=== PATIENT | female | born 1955 ===

== ENCOUNTER → 2020-06-26 | Outpatient (CLI) | payer SELFPAY ==
[~2020-06-26] MED LIST: COVID-19 VACCINE (PFIZER)/PF 30 MCG/0.3 ML VIAL IM ONE; EPINEPHRINE INJ/PF 1 MG/1 ML AMPULE IM PRN
--- OUTSIDE RECORDS SUMMARY | 2020-06-29 10:33 | XMS REPORT ---
:1955 Author Organization Formerly [facility] Address [facility] [address] [place] [address] Care Team Providers Name Role Phone Zach Guaman MD Unavailable Sage Vences L.P.N. Unavailable Unavailable Nayely Guzman M.A. Unavailable Unavailable Allergies, Adverse Reactions, Alerts Allergy Allergy Status Severity Reaction(s) Onset Inactive Treating C omments Name Type Date Date Clinician Sulfa Sulfa Active Rash Drugs Drugs Medications Ordered Filled Start Stop Current Ordering Indication Dosage Frequency Signature Comments Components Medication Medication Date Date Medication? Clinician (SIG) Name Name Vitamin D Yes 1capsul QD Vitamin D 1000 UNIT 06-26 e 1000 UNIT Oral 09:13: Oral Capsule - 48 Capsule - Historical Historical Medication Medication 1 capsule daily Active Estradiol-N 2014-06 2018- No Elisabeth 1Tablet QD Estradiol- orethindron 06-09 Sage Norethindr e Acet 00:00: 00:00 one Acet 1-0.5 MG 00 :00 1-0.5 MG Oral Tablet Oral Tablet 1 Tablet daily for 28 days Quantity: 28 Refills: 12 Ordered :26-Jun-19 18 Elisabeth Cazares Started 09-Apr-2015 Ended 8Inactive LOTRISONE, 2014-06- No Zach Lopez 1Cream LOTRISONE , 1-0.05% 06-09 Deniz OSBORNE 1-0.05% (External 00:00: 00:00 (External Cream) 00 :00 Cream) 1 (one) Cream apply bid to itching skin prn for 7 days Quantity: 1 Refills: 0 Ordered : 5 Zach Guaman MD Started 09-Apr-2015 Ended 5Inactive ACTIVELLA, 2015- No Jyothi 1Tablet ACTIVELLA, 1-0.5MG 10-07 immel 1-0.5MG (Oral 00:00: 00:00 INTAKE COORDINATOR (Oral Tablet) 00 :00 Tablet) 1 (one) Tablet q day for 30 days Quantity: 30 Refills: 6 Ordered : 4 Jyothi Beltran LPN Started 07-Oct-2013 Ended 09-Apr-2015 Inactive ANUSOL-HC, 2013- No Zach Lopez 1Cream ANUSOL-HC , 2.5% 10-07 Deniz OSBORNE 2.5% (Rectal 00:00: 00:00 (Rectal Cream) 00 :00 Cream) 1 Cream apply q hs prn rectal itching for 30 days Quantity: 1 Refills: 0 Ordered : 14 Zach Guaman MD Started 07-Oct-2013 Ended 4Inactive DRISDOL, 2014- No Jyothi 1Capsul DRISDOL, [id number] 11-06 Drkalpesh e [id number] (Oral 00:00: 00:00 INTAKE COORDINATOR (Oral Capsule) 00 :00 Capsule) 1 (one) Capsule q week for 30 days Quantity: 4 Refills: 6 Ordered : 12 Jyothi Beltran LPN Started 2 Ended 09-Apr-2015 Inactive ESTRADIOL, 2013- No Andres 1Tablet QD ESTRADIO L, 1MG (Oral 07-07- Graf 1MG (Oral Tablet) 00:00: 00:00 Tablet) 1 00 :00 Tablet daily for 30 days Quantity: 30 Refills: 3 Ordered : 4 GrafAndres Started 07-Jul-2011 Ended 07-Oct-2013 Discontinu ed MEDROXYPROG 2013- No Andres 1Tablet MEDROXY PRO ESTERONE 07-07- Graf GESTERONE ACETATE, 00:00: 00:00 ACETATE, 2.5MG (Oral 00 :00 2.5MG Tablet) (Oral Tablet) 1 Tablet q day for 30 days Quantity: 30 Refills: 3 Ordered : 4 GrafCandicerijustine Started 07-Jul-2011 Ended 07-Oct-2013 Discontinu ed ORTHO-NOVUM 2008-06 2010- No Nargis 1Tablet QD ORTHO-NO VU (28), 06-05- Mono Wynne 1-35MG-MCG 00:00: 00:00 RMA (28), (Oral 00 :00 1-35MG-MCG Tablet) (Oral Tablet) 1 (one) Tablet daily for 28 days Quantity: 1 Refills: 5 Ordered : 010 Mono Nargis RMA Started 05-Apr-2009 Ended 10Inactive KIKI 28, 2008-06 No Alix 1Tablet KIKI 28, 3-0.03MG 0-14 Ru 3-0.03MG (Oral 00:00: L.P.N. (Oral Tablet) 00 Tablet) 1 (one) Tablet q day for 28 days Quantity: 1 Refills: 5 Ordered : 9 Alix Venecs L.P.N. 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) CALCULUS OF CALCULUS OF Problem Active Deniz KIDNEY KIDNEY Zach Lopez (592.0) CANDIDAL CANDIDAL Problem Active Sage VULVITIS VULVITIS Elisabeth DEFICIENCY, DEFICIENCY, Problem Active Sage, VITAMIN D VITAMIN D Elisabeth NOS (268.9) NOS DYSPLASIA DYSPLASIA Problem Active Sage, OF CERVIX, OF CERVIX, Elisabeth UNSPECIFIED UNSPECIFIED (622.10) ELEVATED ELEVATED Problem Active Sage FASTING FASTING Elisabeth BLOOD SUGAR BLOOD SUGAR ENCOUNTER ENCOUNTER Problem Active GABBY Cazares SCREENING SCREENING FOR HUMAN FOR HUMAN PAPILLOMAVI PAPILLOMAVI NOAH (HPV) NOAH (HPV) (Z11.51) HUMAN HUMAN Problem Active Sage PAPILLOMAVI PAPILLOMAVI Elisabeth NOAH (079.4) NOAH HYPERTONICI HYPERTONICI Problem Active Deniz, TY OF TY OF Zach Lopez BLADDER BLADDER (596.51) OTHER AND OTHER AND Problem Active Sage, UNSPECIFIED UNSPECIFIED Elisabeth OVARIAN OVARIAN CYST CYST (620.2) OTHER OTHER Problem Active Sage, SPECIFIED SPECIFIED Elisabeth MENOPAUSAL MENOPAUSAL AND AND PERIMENOPAU PERIMENOPAU ANIL ANIL DISORDERS DISORDERS OTHER OTHER Problem Active Sage, SYMPTOMS SYMPTOMS Elisabeth INVOLVING INVOLVING ABDOMEN AND ABDOMEN AND PELVIS, PELVIS, ABDOMINAL ABDOMINAL PAIN, RIGHT PAIN, RIGHT LOWER LOWER QUADRANT QUADRANT (789.03) PHARYNGITIS PHARYNGITIS Problem Active Sage, , ACUTE , ACUTE Elisabeth (462.) (462.) POLYP OF POLYP OF Problem Active Sage CORPUS CORPUS Elisabeth UTERI UTERI (621.0) PROPHYLACTI PROPHYLACTI Problem Active Sage C HORMONE C HORMONE Elisabeth REPLACEMENT REPLACEMENT THERAPY THERAPY (V07.4) RECTAL RECTAL Problem Active Sage, ITCHING ITCHING Elisabeth (698.0) SCREENING SCREENING Problem Active Sage, MAMMOGRAM MAMMOGRAM Elisabeth NEC NEC (V76.12) SCREENING SCREENING Problem Active Sage FOR HUMAN FOR HUMAN Elisabeth PAPILLOMAVI PAPILLOMAVI NOAH (HPV) NOAH (HPV) (V73.81) SCREENING SCREENING Problem Inactiv Sage, MAMMOGRAM MAMMOGRAM e Elisabeth NEC NEC (V76.12) SEBACEOUS SEBACEOUS Problem Inactiv Sage, CYST CYST e Elisabeth (706.2) STATE, STATE, Problem Active Deniz, SYMPTOMATIC SYMPTOMATIC Zach L MENOPAUSE/F MENOPAUSE/F EM EM CLIMACTERIC CLIMACTERIC (627.2) SYMPTOM, SYMPTOM, Problem Active Sage, HEADACHE HEADACHE Elisabeth (784.0) SYMPTOM, SYMPTOM, Problem Active Sage PAIN, PAIN, Elisabeth ABDOMINAL, ABDOMINAL, GENERALIZED GENERALIZED (789.07) SYMPTOMS SYMPTOMS Problem Active Sage, INVOLVING INVOLVING Elisabeth URINARY URINARY SYSTEM, SYSTEM, MIXED MIXED INCONTINENC INCONTINENC E, URGE AND E, URGE AND STRESS STRESS (MALE) (MALE) (FEMALE) (FEMALE) (788.33) SYMPTOMS SYMPTOMS Problem Inactiv Sage, INVOLVING INVOLVING e Elisabeth URINARY URINARY SYSTEM, SYSTEM, URINARY URINARY FREQUENCY FREQUENCY (788.41) UNSPECIFIED UNSPECIFIED Problem Active Sage, DISORDER OF DISORDER OF Elisabeth LIPOID LIPOID METABOLISM METABOLISM (272.9) UTI UTI Problem Inactiv Sage, SYMPTOMS SYMPTOMS e Elisabeth EXCESSIVE EXCESSIVE Problem Inactiv Deniz, OR FREQUENT OR FREQUENT e Zach L MENSTRUATIO MENSTRUATIO N (626.2) N SURVEILLANC SURVEILLANC Problem Inactiv Dalton Vences OF E OF e Alix CONTRACEPTI CONTRACEPTI VE PILL VE PILL (V25.41) Disease No Condition Inactiv Impairment e Information Available COLICKY RLQ COLICKY RLQ Problem Active Guzman, ABDOMINAL ABDOMINAL Remedios R. PAIN PAIN DIARRHEA DIARRHEA Problem Active Elisabeth Cazares NOCTURIA NOCTURIA Problem Active Zach Guaman SYMPTOMS SYMPTOMS Problem Active Sage, INVOLVING INVOLVING Elisabeth URINARY URINARY SYSTEM, SYSTEM, URINARY URINARY FREQUENCY FREQUENCY (788.41) URGENCY OF URGENCY OF Problem Active Deniz URINATION URINATION Zach Lopez SEBACEOUS SEBACEOUS Problem Active Sage, CYST CYST Elisabeth (706.2) UTI UTI Problem Active Sage, SYMPTOMS SYMPTOMS Elisabeth Procedures Procedure Date / Time Performed Performing Clinician Margarita acosta Appendectomy Elisabeth Cazares Bone Density Study Elisabeth Cazares Colonoscopy Elisabeth Cazares CT Scan Of Abdomen Elisabeth Cazares Lumpectomy Elisabeth Cazaers Mammogram, Screening Elisabeth Cazares Pap Smear Elisabeth Cazares Ultrasound, Transvaginal Elisabeth Cazares Results Test Description Test Time Test Comments Text Results Atomic Results Result Comments URINALYSIS, AUTOMATED, W/O MICRO ([id number]) 2018-05-09 00:00:00 Test Item Value Reference Range Comments UA - COMMENTS (test code = UA - COMMENTS) . cath specimen/rt UA - LEUKOCYTE ESTERASE (test code = 5799-2) Negative UA - NITRITE (test code = 5802-4) Negative UA - URO (test code = UA - URO) 0.2 mg/dL UA - PROTEIN (test code = 59226-5) Negative UA - PH (test code = 5803-2) 6.0 UA - BLOOD (test code = 5794-3) Trace UA - SPECIFIC GRAVITY (test code = 2965-2) 1.025 UA - KETONES (test code = 2514-8) Negative UA - BILIRUBIN (test code = 5770-3) Negative UA - GLUCOSE (test code = 5792-7) Negative UA - COLOR (test code = 5778-6) Yellow UA - APPEARANCE (test code = 5767-9) Clear URINALYSIS, AUTOMATED, W/O MICRO ([id number])2018-05-09 00:00:00 Test Item Value Reference Range Comments UA - COMMENTS (test code = UA - COMMENTS) . rt UA - LEUKOCYTE ESTERASE (test code = 5799-2) Negative UA - NITRITE (test code = 5802-4) Negative UA - URO (test code = UA - URO) 0.2 mg/dL UA - PROTEIN (test code = 44271-7) Negative UA - PH (test code = 5803-2) 6.5 UA - BLOOD (test code = 5794-3) Negative UA - SPECIFIC GRAVITY (test code = 2965-2) 1.025 UA - KETONES (test code = 2514-8) Negative UA - BILIRUBIN (test code = 5770-3) Negative UA - GLUCOSE (test code = 5792-7) Negative UA - COLOR (test code = 5778-6) Yellow UA - APPEARANCE (test code = 5767-9) Clear Urine Culture, [id number] 00:00:00 Test Item Value Reference Range Comments Urine Culture, Routine (test code = 630-4) Final report PERFORMED BY: [facility] [id number] Clinical Information: SRC:UR UrineURINALYSIS, AUTOMATED, W/O MICRO ([id number])2017-06-26 00:00:00 Test Item Value Reference Range Comments UA - COMMENTS (test code = UA - COMMENTS) . rt UA - LEUKOCYTE ESTERASE (test code = 5799-2) Negative UA - NITRITE (test code = 5802-4) Negative UA - URO (test code = UA - URO) 0.2 mg/dL UA - PROTEIN (test code = 75711-6) Negative UA - PH (test code = 5803-2) 5.5 UA - BLOOD (test code = 5794-3) Negative UA - SPECIFIC GRAVITY (test code = 2965-2) 1.020 UA - KETONES (test code = 2514-8) Negative UA - BILIRUBIN (test code = 5770-3) Negative UA - GLUCOSE (test code = 5792-7) Negative UA - COLOR (test code = 5778-6) Yellow UA - APPEARANCE (test code = 5767-9) Clear URINALYSIS, AUTOMATED, W/O MICRO ([id number])2015-04-09 00:00:00 Test Item Value Reference Range Comments UA - COMMENTS (test code = UA - COMMENTS) . sp UA - LEUKOCYTE ESTERASE (test code = 5799-2) Negative UA - NITRITE (test code = 5802-4) Negative UA - URO (test code = UA - URO) 0.2 mg/dL UA - PROTEIN (test code = 54646-3) Negative UA - PH (test code = 5803-2) 5.5 UA - BLOOD (test code = 5794-3) Trace UA - SPECIFIC GRAVITY (test code = 2965-2) >1.030 UA - KETONES (test code = 2514-8) Negative UA - BILIRUBIN (test code = 5770-3) + UA - GLUCOSE (test code = 5792-7) Negative UA - COLOR (test code = 5778-6) dark yellow UA - APPEARANCE (test code = 5767-9) Clear Comp. Metabolic Panel (14)2015-03-19 00:00:00 Test Item Value Reference Range Comments ALT (SGPT) (test code = 1742-6) 19 [iU]/L 0-32 AST (SGOT) (test code = 1920-8) 29 [iU]/L 0-40 Alkaline Phosphatase, S (test code = 6768-6) 71 [iU]/L 39- 117 A/G Ratio (test code = 1759-0) 2.1 1.1-2.5 Bilirubin, Total (test code = 1975-2) 0.6 mg/dL 0.0-1.2 Globulin, Total (test code = 91450-1) 2.3 g/dL 1.5-4.5 Albumin, Serum (test code = 1751-7) 4.9 g/dL 3.5-5.5 Protein, Total, Serum (test code = 2885-2) 7.2 g/dL 6.0-8 .5 Calcium, Serum (test code = 27872-5) 10.0 mg/dL 8.7-10.2 Carbon Dioxide, Total (test code = 8-9) 23 mmol/L 18-29 Chloride, Serum (test code = 2075-0) 101 mmol/L 97-108 Potassium, Serum (test code = 2823-3) 4.4 mmol/L 3.5-5.2 Sodium, Serum (test code = 2951-2) 141 mmol/L 134-144 BUN/Creatinine Ratio (test code = 3097-3) 14 9-23 eGFR If Africn Am (test code = 11534-3) 92 mL/min/1.73 >59 eGFR If NonAfricn Am (test code = 10171-7) 80 mL/min/1.73 >59 Creatinine, Serum (test code = 2160-0) 0.81 mg/dL 0.57-1.00 BUN (test code = 3094-0) 11 mg/dL 6-24 Glucose, Serum (test code = 2345-7) 104 mg/dL 65-99 PATIENT WAS FASTING PERFORMED BY: [facility] [address] [id number] 00:00:00 Test Item Value Reference Range Comments LDL Cholesterol Calc (test 148 mg/dL 0-99 Eff ective March 29, 2015 code = 79340-4) the reference in terval for LDL Cholesterol Calc will be changing to: 0 - 19 years 0 - 109 >19 years 0 - 99 VLDL Cholesterol Zia (test 16 mg/dL 5-40 code = 30382-2) HDL Cholesterol (test code = 77 mg/dL >39 Acc ording to ATP-III 2085-02) Guidelines, HDL- C >59 mg/dL is considered a negative risk factor for CHD. Cholesterol, Total (test code 241 mg/dL 100-199 Effective March 29, 2015 = 3-3) the reference in terval for Cholesterol, Tot al will be changing to: 0 - 19 years 100 - 169 >19 years 100 - 199 Triglycerides (test code = 79 mg/dL 0-149 Eff ective March 29, 2015 2571-8) the reference in terval for Triglycerides wi ll be changing to: 0 - 9 years 0 - 74 10 - 19 years 0 - 89 >19 years 0 - 149 PATIENT WAS FASTING PERFORMED BY: [facility] [place] [address] [facility] [id number] 00:00:00 Test Item Value Reference Range Comments TSH (test code = 05651-9) 2.610 uIU/mL 0.450-4.500 PATIENT WAS FASTING PERFORMED BY: [facility] [place] 058487 [facility] [id number], [id number] 00:00:00 Test Item Value Reference Range Comments Vitamin D, 25-Hydroxy 35.4 ng/mL 30.0-100.0 Vitamin D deficiency has been (test code = 87608-7) defined by the [place] of [employer] and an Endocrine Society practice guideline as a level of serum 2 5-OH vitamin D less than 20 ng/ mL (1,2). The Endocrine Societ y went on to further define v itamin D insufficiency as a level between 21 and 29 ng/mL (2). 1. IOM ([place] of [place] dicnigel). 2010. Dietary referenc e intakes for calcium and D. W jose rafael [place]: The National Sylvia demies Press. 2. Tai MF, Erich vo [place], Elida TINOCO, et al. Evaluation, josefina tment, and prevention of vi tamin D deficiency: an E ndocrine Society clinical practic e guideline. JCEM. 2010; 96(7):1911-30. PATIENT WAS FASTING PERFORMED BY: [facility] [address] [id number] HEALTH PANEL (ECWC-CBC,CMP,TSH) ([id number])2015-03-19 00:00:00 Test Item Value Reference Range Comments CBC COMMENTS (test code = 35462-7) . C sht MPV (test code = 776-5) 8.9 fL 7.8-11.0 BLOOD COUNT, PLATELET, AUTOMATED (test code = 320 x10^3uL 15 0-400 777-3) RDW (RED CELL DISTRIBUTION WIDTH) (test code = 11.2 % 1 1.6-13.7 788-0) MCHC (MEAN CORPUSCULAR HEMOGLOBIN CONCENTRATI 34.1 g/dL 33 .0-37.0 (test code = 786-4) MCH (MEAN CORPUSCULAR HEMOGLOBIN) (test code = 29.0 pg 2 7.0-37.0 785-6) MCV (MEAN CORPUSCULAR VOLUME) (test code = 85.0 fL 80.0- 99.9 787-2) HCT (HEMATOCRIT) (test code = 4544-3) 41.5 % 35.0-60.0 HGB (HEMOGLOBIN) (test code = 718-7) 14.2 g/dL 11.0-18.0 RBC (test code = 789-8) 4.88 x10^6uL 4.00-6.00 GRANULOCYTE % (test code = 770-8) 4.2 x10^3uL 1.4-6.5 MONOCYTES (test code = 5905-5) 0.5 x10^3uL 0.1-0.6 LYMPHOCYTE % (test code = 736-9) 34.7 % 20.5-51.1 GRANULOCYTE # (test code = 751-8) 60.1 % 42.2-75.2 MONOCYTE # (test code = 742-7) 5.2 % 1.7-9.3 WBC (test code = 6690-2) 7.1 x10^3uL 4.5-10.5 URINALYSIS, AUTOMATED, W/O MICRO ([id number])2013-10-07 00:00:00 Test Item Value Reference Range Comments UA - URINE SEDIMENT (test code = 35773-7) 0 UA - LEUKOCYTE ESTERASE (test code = 5799-2) Trace UA - NITRITE (test code = 5802-4) Negative UA - PROTEIN (test code = 51684-8) Trace UA - BILIRUBIN (test code = 5770-3) Negative UA - BLOOD (test code = 5794-3) Trace UA - PH (test code = 5803-2) 5.0 4.6-8.0 UA - SPECIFIC GRAVITY (test code = 2965-2) 1.025 1.001 -1.035 UA - KETONES (test code = 2514-8) Negative UA - GLUCOSE (test code = 5792-7) Negative UA - COLOR (test code = 5778-6) Yellow UA - APPEARANCE (test code = 5767-9) Clear Comp. Metabolic Panel (14)2013-09-29 00:00:00 Test Item Value Reference Range Comments ALT (SGPT) (test code = 1742-6) 11 [iU]/L 0-32 AST (SGOT) (test code = 1920-8) 19 [iU]/L 0-40 Alkaline Phosphatase, S (test code = 6768-6) 78 [iU]/L 39- 117 Bilirubin, Total (test code = 1975-2) 0.4 mg/dL 0.0-1.2 A/G Ratio (test code = 1759-0) 2.3 1.1-2.5 Globulin, Total (test code = 15495-5) 2.0 g/dL 1.5-4.5 Albumin, Serum (test code = 1751-7) 4.6 g/dL 3.5-5.5 Protein, Total, Serum (test code = 2885-2) 6.6 g/dL 6.0-8 .5 Calcium, Serum (test code = 68327-7) 9.8 mg/dL 8.7-10.2 Carbon Dioxide, Total (test code = 2027-9) 28 mmol/L 19-28 Chloride, Serum (test code = 2075-0) 104 mmol/L 97-108 Potassium, Serum (test code = 2823-3) 4.8 mmol/L 3.5-5.2 Sodium, Serum (test code = 2951-2) 144 mmol/L 134-144 BUN/Creatinine Ratio (test code = 3097-3) 16 9-23 eGFR If Africn Am (test code = 60079-2) 112 mL/min/1.73 >59 eGFR If NonAfricn Am (test code = 66187-9) 97 mL/min/1.73 >59 Creatinine, Serum (test code = 2160-0) 0.68 mg/dL 0.57-1.00 BUN (test code = 3094-0) 11 mg/dL 6-24 Glucose, Serum (test code = 2345-7) 94 mg/dL 65-99 PATIENT WAS FASTING PERFORMED BY: [facility] [address] [id number] 00:00:00 Test Item Value Reference Range Comments LDL Cholesterol Calc (test code 117 mg/dL 0-99 = 91588-8) HDL Cholesterol (test code = 74 mg/dL >39 Acc ording to ATP-III 5-9) Guidelines, HDL- C >59 mg/dL is considered a negative risk factor for CHD. VLDL Cholesterol Zia (test code 17 mg/dL 5-40 = 82797-9) Triglycerides (test code = 85 mg/dL 0-149 2571-8) Cholesterol, Total (test code = 208 mg/dL 897-571 5572-3) PATIENT WAS FASTING PERFORMED BY: [facility] [address] [id number] 00:00:00 Test Item Value Reference Range Comments TSH (test code = 69587-1) 2.450 uIU/mL 0.450-4.500 PATIENT WAS FASTING PERFORMED BY: [facility] [id number], [id number] 00:00:00 Test Item Value Reference Range Comments Vitamin D, 25-Hydroxy 36.5 ng/mL 30.0-100.0 Vitamin D deficiency has been (test code = 34566-5) defined by the [place] of [employer] and an Endocrine Society practice guideline as a level of serum 2 5-OH vitamin D less than 20 ng/ mL (1,2). The Endocrine Societ y went on to further define v itamin D insufficiency as a level between 21 and 29 ng/mL (2). 1. IOM ([place] of [place] dicine). 2010. Dietary referenc e intakes for calcium and D. [facility] [place]: The National Sylvia demies Press. 2. Tai MF, Erich LOCKHART, Elida TINOCO, et al. Evaluation, josefina tment, and prevention of vi tamin D deficiency: an E ndocrine Society clinical practic e guideline. JCEM. 2010; 96(7):1911-30. PATIENT WAS FASTING PERFORMED BY: [facility] [employer] [address] [id number] HEALTH PANEL (ECWC-CBC,CMP,TSH) ([id number])2013-09-29 00:00:00 Test Item Value Reference Range Comments CBC COMMENTS (test code = 05213-5) . C ag MPV (test code = 776-5) 8.3 fL 7.8-11.0 BLOOD COUNT, PLATELET, AUTOMATED (test code = 317 x10^3uL 15 0-400 777-3) RDW (RED CELL DISTRIBUTION WIDTH) (test code = 11.0 % 1 1.6-13.7 788-0) MCHC (MEAN CORPUSCULAR HEMOGLOBIN CONCENTRATI 35.0 g/dL 33 .0-37.0 (test code = 786-4) MCH (MEAN CORPUSCULAR HEMOGLOBIN) (test code = 29.2 pg 2 7.0-37.0 785-6) MCV (MEAN CORPUSCULAR VOLUME) (test code = 83.6 fL 80.0- 99.9 787-2) HCT (HEMATOCRIT) (test code = 4544-3) 40.3 % 35.0-60.0 HGB (HEMOGLOBIN) (test code = 718-7) 14.1 g/dL 11.0-18.0 RBC (test code = 789-8) 4.82 x10^6uL 4.00-6.00 GRANULOCYTE % (test code = 770-8) 3.5 x10^3uL 1.4-6.5 MONOCYTES (test code = 5905-5) 0.5 x10^3uL 0.1-0.6 LYMPHOCYTE % (test code = 736-9) 36.3 % 20.5-51.1 GRANULOCYTE # (test code = 751-8) 57.0 % 42.2-75.2 MONOCYTE # (test code = 742-7) 6.7 % 1.7-9.3 WBC (test code = 6690-2) 6.2 x10^3uL 4.5-10.5 Comp. Metabolic Panel (14)2011-10-31 00:00:00 Test Item Value Reference Range Comments ALT (SGPT) (test code = 1742-6) 11 [iU]/L 0-40 Alkaline Phosphatase, S (test code = 6768-6) 72 [iU]/L 25- 150 AST (SGOT) (test code = 1920-8) 15 [iU]/L 0-40 Bilirubin, Total (test code = 1975-2) 0.5 mg/dL 0.0-1.2 A/G Ratio (test code = 1759-0) 1.8 1.1-2.5 Globulin, Total (test code = 06043-6) 2.4 g/dL 1.5-4.5 Albumin, Serum (test code = 1751-7) 4.2 g/dL 3.5-5.5 Protein, Total, Serum (test code = 2885-2) 6.6 g/dL 6.0-8 .5 Calcium, Serum (test code = 80087-3) 9.1 mg/dL 8.7-10.2 Carbon Dioxide, Total (test code = 2027-9) 24 mmol/L 20-32 Chloride, Serum (test code = 2075-0) 102 mmol/L 97-108 Potassium, Serum (test code = 2823-3) 4.5 mmol/L 3.5-5.2 Sodium, Serum (test code = 2951-2) 140 mmol/L 134-144 BUN/Creatinine Ratio (test code = 3097-3) 21 9-23 eGFR If Africn Am (test code = 37632-3) 113 mL/min/1.73 >59 Creatinine, Serum (test code = 2160-0) 0.68 mg/dL 0.57-1.00 eGFR If NonAfricn Am (test code = 54994-6) 98 mL/min/1.73 >59 BUN (test code = 3094-0) 14 mg/dL 6-24 Glucose, Serum (test code = 2345-7) 95 mg/dL 65-99 PATIENT WAS FASTING PERFORMED BY: [facility] [address] [id number] 00:00:00 Test Item Value Reference Range Comments LDL Cholesterol Calc (test code 135 mg/dL 0-99 = 01991-8) HDL Cholesterol (test code = 73 mg/dL >39 Acc ording to ATP-III 2085-9) Guidelines, HDL- C >59 mg/dL is considered a negative risk factor for CHD. VLDL Cholesterol Zia (test code 25 mg/dL 5-40 = 46851-7) Cholesterol, Total (test code = 233 mg/dL 305-378 8706-3) Triglycerides (test code = 127 mg/dL 0-149 2571-8) PATIENT WAS FASTING PERFORMED BY: [facility] [address] [id number] 00:00:00 Test Item Value Reference Range Comments TSH (test code = 53583-8) 2.710 uIU/mL 0.450-4.500 PATIENT WAS FASTING PERFORMED BY: [facility] [address] [id number], [id number] 00:00:00 Test Item Value Reference Range Comments Vitamin D, 25-Hydroxy 35.3 ng/mL 30.0-100.0 Vitamin D deficiency has been (test code = 03737-4) defined by the [place] [employer] and an Endocrine Society practice guideline as a level of serum 2 5-OH vitamin D less than 20 ng/ mL (1,2). The Endocrine Societ y went on to further define v itamin D insufficiency as a level between 21 and 29 ng/mL (2). 1. IOM ([place]). 2010. Dietary referenc e intakes for calcium and D. W jose rafael [place]: [facility] [employer]. 2. Tai MF, Erich vo [place], Elida TINOCO, et al. Evaluation, josefina tment, and prevention of vi tamin D deficiency: an E ndocrine Society clinical practic e guideline. JCEM. 2010; 96(7):1911-30. PATIENT WAS FASTING PERFORMED BY: [facility] [address] [id number] HEALTH PANEL (ECWC-CBC,CMP,TSH) ([id number])2011-10-31 00:00:00 Test Item Value Reference Range Comments CBC COMMENTS (test code = 02853-0) . C MEF MPV (test code = 776-5) 7.6 fL 7.8-11.0 BLOOD COUNT, PLATELET, AUTOMATED (test code = 324 x10^3uL 15 0-400 777-3) RDW (RED CELL DISTRIBUTION WIDTH) (test code = 10.1 % 1 1.6-13.7 788-0) MCHC (MEAN CORPUSCULAR HEMOGLOBIN CONCENTRATI 34.3 g/dL 33 .0-37.0 (test code = 786-4) MCH (MEAN CORPUSCULAR HEMOGLOBIN) (test code = 29.5 pg 2 7.0-37.0 785-6) MCV (MEAN CORPUSCULAR VOLUME) (test code = 85.9 fL 80.0- 99.9 787-2) HCT (HEMATOCRIT) (test code = 4544-3) 41.2 % 35.0-60.0 HGB (HEMOGLOBIN) (test code = 718-7) 14.1 g/dL 11.0-18.0 RBC (test code = 789-8) 4.79 x10^6uL 4.00-6.00 GRANULOCYTE % (test code = 770-8) 5.9 x10^3uL 1.4-6.5 MONOCYTES (test code = 5905-5) 0.6 x10^3uL 0.1-0.6 LYMPHOCYTE % (test code = 736-9) 23.5 % 20.5-51.1 GRANULOCYTE # (test code = 751-8) 70.7 % 42.2-75.2 MONOCYTE # (test code = 742-7) 5.8 % 1.7-9.3 WBC (test code = 6690-2) 8.4 x10^3uL 4.5-10.5 URINALYSIS, AUTOMATED, W/O MICRO ([id number])2011-04-20 00:00:00 Test Item Value Reference Range Comments UA - LEUKOCYTE ESTERASE (test code = 5799-2) Negative UA - NITRITE (test code = 5802-4) Negative UA - PROTEIN (test code = 06082-6) Negative UA - BILIRUBIN (test code = 5770-3) Negative UA - BLOOD (test code = 5794-3) Trace UA - PH (test code = 5803-2) 6.0 4.6-8.0 UA - SPECIFIC GRAVITY (test code = 2965-2) 1.025 1.001 -1.035 UA - KETONES (test code = 2514-8) Negative UA - GLUCOSE (test code = 5792-7) Negative UA - COLOR (test code = 5778-6) Yellow UA - APPEARANCE (test code = 5767-9) Clear Comp. Metabolic Panel (14)2011-04-14 00:00:00 Test Item Value Reference Range Comments ALT (SGPT) (test code = 13 [iU]/L 0-40 1742-6) AST (SGOT) (test code = 17 [iU]/L 0-40 1920-8) Alkaline Phosphatase, S 69 [iU]/L 25-150 (test code = 6768-6) Bilirubin, Total (test 0.5 mg/dL 0.0-1.2 code = 1975-2) A/G Ratio (test code = 1.9 1.1-2.5 1759-0) Globulin, Total (test code 2.4 g/dL 1.5-4.5 = 40361-5) Albumin, Serum (test code 4.5 g/dL 3.5-5.5 = 1751-7) Protein, Total, Serum 6.9 g/dL 6.0-8.5 (test code = 2885-2) Calcium, Serum (test code 9.2 mg/dL 8.7-10.2 = 49293-1) Carbon Dioxide, Total 23 mmol/L 20-32 (test code = 8-9) Chloride, Serum (test code 104 mmol/L 97-108 = 2075-0) Potassium, Serum (test 4.4 mmol/L 3.5-5.2 code = 2823-3) Sodium, Serum (test code = 140 mmol/L 204-508 0823-2) BUN/Creatinine Ratio (test 16 - code = 3097-3) eGFR If Africn Am (test 116 mL/min/1.73 >59 Note: A persistent eGFR <60 code = eGFR If Africn Am) mL/min /1.73 m2 (3 months or more) may indica te chronic kidney disease. An eGFR >59 mL/min/1.73 m2 w ith an elevated urine p rotein also may indicate chr onic kidney disease. Calcula marisel using CKD-EPI formula. eGFR If NonAfricn Am (test 101 mL/min/1.73 >59 code = 30421-4) Creatinine, Serum (test 0.64 mg/dL 0.57-1.00 code = 2160-0) BUN (test code = 3094-0) 10 mg/dL 6-24 Glucose, Serum (test code 88 mg/dL 65-99 = 2345-7) PATIENT WAS FASTING PERFORMED BY: [facility] [id number] 00:00:00 Test Item Value Reference Range Comments LDL Cholesterol Calc (test code 150 mg/dL 0-99 = 70180-9) VLDL Cholesterol Zia (test code 15 mg/dL 5-40 = 67385-4) HDL Cholesterol (test code = 69 mg/dL >39 Acc ording to ATP-III 5-9) Guidelines, HDL- C >59 mg/dL is considered a negative risk factor for CHD. Triglycerides (test code = 77 mg/dL 0-149 2571-8) Cholesterol, Total (test code = 234 mg/dL 937-851 8758-3) PATIENT WAS FASTING PERFORMED BY: [facility] [address] [id number] 00:00:00 Test Item Value Reference Range Comments TSH (test code = 70358-1) 2.090 uIU/mL 0.450-4.500 PATIENT WAS FASTING PERFORMED BY: [facility] [address] [id number] D, [id number] 00:00:00 Test Item Value Reference Range Comments Vitamin D, 25-Hydroxy (test 38.7 ng/mL 32.0-100.0 E ffective April 24, 2011 code = 1989-3) Vitamin D, 25-Hy droxy reference interv als will be changing to 30-1 00. . Recent studies consider the lower limit of 32.0 ng /mL to be a threshold for [facility]. Ryder FRAUSTO. Mervin Nut r. 2005 Jul;135(2):317-2 2. PATIENT WAS FASTING PERFORMED BY: [facility] [address] [id number] HEALTH PANEL (ECWC-CBC,CMP,TSH) ([id number])2011-04-14 00:00:00 Test Item Value Reference Range Comments CBC COMMENTS (test code = 22286-8) . C AG MPV (test code = 776-5) 8.7 fL 7.8-11.0 BLOOD COUNT, PLATELET, AUTOMATED (test code = 308 x10^3uL 15 0-400 777-3) RDW (RED CELL DISTRIBUTION WIDTH) (test code = 12.0 % 1 1.6-13.7 788-0) MCHC (MEAN CORPUSCULAR HEMOGLOBIN CONCENTRATI 33.2 g/dL 33 .0-37.0 (test code = 786-4) MCH (MEAN CORPUSCULAR HEMOGLOBIN) (test code = 28.7 pg 2 7.0-37.0 785-6) MCV (MEAN CORPUSCULAR VOLUME) (test code = 86.5 fL 80.0- 99.9 787-2) HCT (HEMATOCRIT) (test code = 4544-3) 42.5 % 35.0-60.0 HGB (HEMOGLOBIN) (test code = 718-7) 14.1 g/dL 11.0-18.0 RBC (test code = 789-8) 4.91 x10^6uL 4.00-6.00 GRANULOCYTE % (test code = 770-8) 4.7 x10^3uL 1.4-6.5 MONOCYTES (test code = 5905-5) 0.5 x10^3uL 0.1-0.6 LYMPHOCYTE % (test code = 736-9) 28.3 % 20.5-51.1 GRANULOCYTE # (test code = 751-8) 66.1 % 42.2-75.2 MONOCYTE # (test code = 742-7) 5.6 % 1.7-9.3 WBC (test code = 6690-2) 7.2 x10^3uL 4.5-10.5 Vitamin D, [id number] 00:00:00 Test Item Value Reference Range Comments Vitamin D, 25-Hydroxy (test 43.4 ng/mL 32.0-100.0 Rece nt studies consider the code = 1988-) lower limit of 3 2.0 ng/mL to be a threshold f or optimal health. Ryder Butler W. J Nutr. 2005 Jul;135(2): 317-22. PATIENT NOT FASTING PERFORMED BY: [facility] [address] [id number] - rapid strep ([id number])2010-11-24 00:00:00 Test Item Value Reference Range Comments STREPTOCOCCUS GRP A, INFCTS ANTIGN (test code = NEGATIVE NEGATIVE AG 6556-5) Lipid [id number] 00:00:00 Test Item Value Reference Range Comments LDL Cholesterol Calc (test code 144 mg/dL 0-99 = 88341-8) HDL Cholesterol (test code = 71 mg/dL >39 Acc ording to ATP-III 2084-9) Guidelines, HDL- C >59 mg/dL is considered a negative risk factor for CHD. Triglycerides (test code = 77 mg/dL 0-149 2571-8) VLDL Cholesterol Zia (test code 15 mg/dL 5-40 = 89591-0) Cholesterol, Total (test code = 230 mg/dL 367-966 0002-3) PATIENT WAS FASTING PERFORMED BY: [facility] [place] [address] [facility] [id number], [id number] 00:00:00 Test Item Value Reference Range Comments Cholesterol, Total (test code = 2092-3) 239 mg/dL 100-199 PATIENT NOT FASTING PERFORMED BY: [facility] [place] [address] [facility] [id number]. Metabolic Panel (14)2010-04-14 00:00:00 Test Item Value Reference Range Comments A/G Ratio (test code = 1759-0) 1.7 1.1-2.5 Albumin, Serum (test code = 4.2 g/dL 3.5-5.5 1751-7) Alkaline Phosphatase, S (test 72 [iU]/L 25-150 code = 6768-6) ALT (SGPT) (test code = 1742-6) 9 [iU]/L 0-40 AST (SGOT) (test code = 1920-8) 14 [iU]/L 0-40 Bilirubin, Total (test code = 0.4 mg/dL 0.0-1.2 1974-2) Globulin, Total (test code = 2.5 g/dL 1.5-4.5 83873-3) Protein, Total, Serum (test 6.7 g/dL 6.0-8.5 code = 2885-2) Calcium, Serum (test code = 9.1 mg/dL 8.7-10.2 66630-3) Carbon Dioxide, Total (test 25 mmol/L 20-32 code = 8-9) Chloride, Serum (test code = 106 mmol/L 97-108 5-0) Potassium, Serum (test code = 4.1 mmol/L 3.5-5.2 2823-3) BUN (test code = 3094-0) 14 mg/dL 5-26 BUN/Creatinine Ratio (test code 01-28 = 3097-3) Creatinine, Serum (test code = 0.69 mg/dL 0.57-1.00 2160-0) eGFR (test code = eGFR) >59 >59 eGFR AfricanAmerican (test code >59 >59 Note: Persistent reduction = eGFR AfricanAmerican) for 3 mo nths or more in an eGFR <60 mL/min/ 1.73 m2 defines CKD. Pat ients with eGFR values >/=6 0 mL/min/1.73 m2 m ay also have CKD if evid ence of persistent prote inuria is present. Additio nal information may be found at [email or web address]. Sodium, Serum (test code = 142 mmol/L 018-208 0449-2) Glucose, Serum (test code = 96 mg/dL 65-99 2345-7) PATIENT NOT FASTING PERFORMED BY: [facility] [employer] [address] [id number] Clinical Information: 3 HR [id number] 00:00:00 Test Item Value Reference Range Comments TSH (test code = 82515-8) 2.730 uIU/mL 0.450-4.500 PATIENT NOT FASTING PERFORMED BY: [facility] [address] [id number] D, [id number] 00:00:00 Test Item Value Reference Range Comments Vitamin D, 25-Hydroxy (test 24.9 ng/mL 32.0-100.0 Rece nt studies consider the code = 1988-08) lower limit of 3 2.0 ng/mL to be a threshold f or optimal health. Ryder Butler W. J Nutr. 2005 Jul;135(2): 317-22. PATIENT NOT FASTING PERFORMED BY: [facility] [address] [id number] HEALTH PANEL (ECWC-CBC,CMP,TSH) ([id number])2010-04-14 00:00:00 Test Item Value Reference Range Comments CBC COMMENTS (test code = 13960-4) . C MEF MPV (test code = 776-5) 7.7 fL 7.8-11.0 BLOOD COUNT, PLATELET, AUTOMATED (test code = 373 x10^3uL 15 0-400 777-3) RDW (RED CELL DISTRIBUTION WIDTH) (test code = 16.4 % 1 1.6-13.7 788-0) MCHC (MEAN CORPUSCULAR HEMOGLOBIN CONCENTRATI 34.4 g/dL 33 .0-37.0 (test code = 786-4) MCH (MEAN CORPUSCULAR HEMOGLOBIN) (test code = 29.4 pg 2 7.0-37.0 785-6) MCV (MEAN CORPUSCULAR VOLUME) (test code = 85.4 fL 80.0- 99.9 787-2) HCT (HEMATOCRIT) (test code = 4544-3) 38.3 % 35.0-60.0 HGB (HEMOGLOBIN) (test code = 718-7) 13.2 g/dL 11.0-18.0 RBC (test code = 789-8) 4.48 x10^6uL 4.00-6.00 GRANULOCYTE % (test code = 770-8) 5.3 x10^3uL 1.4-6.5 MONOCYTES (test code = 5905-5) 0.6 x10^3uL 0.1-0.6 LYMPHOCYTE % (test code = 736-9) 29.2 % 20.5-51.1 GRANULOCYTE # (test code = 751-8) 64.6 % 42.2-75.2 MONOCYTE # (test code = 742-7) 6.2 % 1.7-9.3 WBC (test code = 6690-2) 8.3 x10^3uL 4.5-10.5 URINALYSIS, AUTOMATED, W/O MICRO ([id number])2010-04-14 00:00:00 Test Item Value Reference Range Comments UA - COMMENTS (test code = UA - COMMENTS) . crs UA - URINE SEDIMENT (test code = 64842-1) . UA - LEUKOCYTE ESTERASE (test code = 5799-2) neg UA - REDUCING SUBSTANCE (test code = 95951-6) . UA - NITRITE (test code = 5802-4) neg UA - PROTEIN (test code = 42455-8) trace UA - BILIRUBIN (test code = 5770-3) neg UA - BLOOD (test code = 5794-3) neg UA - PH (test code = 5803-2) 7.5 4.6-8.0 UA - SPECIFIC GRAVITY (test code = 2965-2) 1.010 1.001 -1.035 UA - KETONES (test code = 2514-8) trace UA - GLUCOSE (test code = 5792-7) neg UA - COLOR (test code = 5778-6) yellow UA - APPEARANCE (test code = 5767-9) cloudy [id number] 00:00:00 Test Item Value Reference Range Comments Estradiol (test code = <5.1 Adult Fem sophia: Follicular phase 2243-4) 12.5 - 166.0 Ovu lation phase 85.8 - 498.0 Luteal p hase 43.8 - 211.0 Postmenopausal < 6.0 - 54.[address] imester 215.0 - >4300.0 Girls (1 -10 years) 6.0 - 27.0 Ramon ECLIA methodology PATIENT NOT FASTING PERFORMED BY: [facility] [id number], [id number] 00:00:00 Test Item Value Reference Range Comments FSH (test code = 56.1 m[iU]/mL Follicular phas e 3.5 - 12.5 61021-1) Ovulation phase 4.7 - 21.5 Luteal phase 1.7 - 7.7 Postmenopausal 2 5.8 - 134.8 PATIENT NOT FASTING PERFORMED BY: [facility] [address] [id number], AUTOMATED, W/O MICRO ([id number]) 2009-03-17 00:00:00 Test Item Value Reference Range Comments UA - KETONES (test code = 2514-8) NEG UA - GLUCOSE (test code = 5792-7) NEG UA - SPECIFIC GRAVITY (test code = 2965-2) 1.025 1.001 -1.035 UA - PH (test code = 5803-2) 6.0 4.6-8.0 UA - BLOOD (test code = 5794-3) TRACE UA - BILIRUBIN (test code = 5770-3) NEG UA - PROTEIN (test code = 89057-3) NEG UA - NITRITE (test code = 5802-4) NEG UA - REDUCING SUBSTANCE (test code = 10350-7) NEG UA - URINE SEDIMENT (test code = 73053-6) NEG UA - COLOR (test code = 5778-6) gold UA - APPEARANCE (test code = 5767-9) clear Lipid [id number] 00:00:00 Test Item Value Reference Range Comments Comment (test code = Comment) COMMENT If initial LDL-cholesterol result is >100 m g/dL, assess for risk factors . HDL Cholesterol (test code = 88 mg/dL 40-59 HDL cholesterol values >59 HDL Cholesterol) mg/dL are assoc iated with reduced cardiac risk. LDL Cholesterol Calc (test code 143 mg/dL 0-99 = LDL Cholesterol Calc) VLDL Cholesterol Zia (test code 20 mg/dL 5-40 = VLDL Cholesterol Zia) Cholesterol, Total (test code = 251 mg/dL 100-199 Cholesterol, Total) Triglycerides (test code = 98 mg/dL 0-149 Triglycerides) PATIENT WAS FASTING PERFORMED BY: [facility] [id number], [id number] 00:00:00 Test Item Value Reference Range Comments Cholesterol, Total (test code = Cholesterol, 275 mg/dL 100 -199 Total) PATIENT NOT FASTINGComp. Metabolic Panel (14)2007-09-17 00:00:00 Test Item Value Reference Range Comments A/G Ratio (test code = A/G Ratio) 1.3 1.1-2.5 Albumin, Serum (test code = Albumin, Serum) 4.2 g/dL 3.5- 5.5 Alkaline Phosphatase, S (test code = Alkaline 69 [iU]/L 25 -150 Phosphatase, S) ALT (SGPT) (test code = ALT (SGPT)) 13 [iU]/L 0-40 AST (SGOT) (test code = AST (SGOT)) 15 [iU]/L 0-40 Bilirubin, Total (test code = Bilirubin, Total) 0.5 mg/dL 0.1-1.2 BUN (test code = BUN) 16 mg/dL 5-26 BUN/Creatinine Ratio (test code = BUN/Creatinine 20 8-27 Ratio) Calcium, Serum (test code = Calcium, Serum) 10.1 mg/dL 8.5- 10.6 Carbon Dioxide, Total (test code = Carbon 25 mmol/L 20-32 Dioxide, Total) Chloride, Serum (test code = Chloride, Serum) 98 mmol/L 97 -108 Creatinine, Serum (test code = Creatinine, Serum) 0.8 mg/dL 0.5-1.5 Globulin, Total (test code = Globulin, Total) 3.3 g/dL 1. 5-4.5 Glucose, Serum (test code = Glucose, Serum) 79 mg/dL 65-9 9 Potassium, Serum (test code = Potassium, Serum) 4.5 mmol/L 3.5-5.2 Protein, Total, Serum (test code = Protein, 7.5 g/dL 6.0- 8.5 Total, Serum) Sodium, Serum (test code = Sodium, Serum) 136 mmol/L 135-14 5 PATIENT NOT [id number] 00:00:00 Test Item Value Reference Range Comments TSH (test code = TSH) 2.107 uIU/mL 0.350-5.500 Adult TSH concentrations below 5.5 uIU/mL does not rule out the presence of subc linical hypothyroidism. PATIENT NOT FASTING PERFORMED BY: [facility] [id number] HEALTH PANEL (ECWC-CBC,CMP,TSH) ([id number])2007-09-17 00:00:00 Test Item Value Reference Range Comments BLOOD COUNT, PLATELET, AUTOMATED (test code = 426 x10^3uL 15 0-400 777-3) CBC COMMENTS (test code = 75623-3) . C SHT GRANULOCYTE # (test code = 751-8) 66.7 % 42.2-75.2 GRANULOCYTE % (test code = 770-8) 7.6 x10^3uL 1.4-6.5 HCT (HEMATOCRIT) (test code = 4544-3) 40.1 % 35.0-60.0 HGB (HEMOGLOBIN) (test code = 718-7) 14.2 g/dL 11.0-18.0 LYMPHOCYTES, TOTAL (test code = 736-9) 3.1 x10^3uL 1.2-3.4 MCH (MEAN CORPUSCULAR HEMOGLOBIN) (test code = 29.1 pg 2 7.0-37.0 785-6) MCHC (MEAN CORPUSCULAR HEMOGLOBIN CONCENTRATI 35.5 g/dL 33 .0-37.0 (test code = 786-4) MCV (MEAN CORPUSCULAR VOLUME) (test code = 82.0 fL 80.0- 99.9 787-2) MONOCYTE # (test code = 742-7) 6.2 % 1.7-9.3 MONOCYTES (test code = 5905-5) 0.8 x10^3uL 0.1-0.6 MPV (test code = 776-5) 7.3 fL 7.8-11.0 RBC (test code = 789-8) 4.89 x10^6uL 4.00-6.00 RDW (RED CELL DISTRIBUTION WIDTH) (test code = 14.0 % 1 1.6-13.7 788-0) WBC (test code = 6690-2) 11.5 x10^3uL 4.5-10.5 URINALYSIS, AUTOMATED, W/O MICRO ([id number])2007-09-17 00:00:00 Test Item Value Reference Range Comments UA - APPEARANCE (test code = 5767-9) CLEAR UA - BILIRUBIN (test code = 5770-3) NEG UA - BLOOD (test code = 5794-3) NEG UA - COLOR (test code = 5778-6) YELLOW UA - COMMENTS (test code = UA - COMMENTS) . UA - GLUCOSE (test code = 5792-7) NEG UA - KETONES (test code = 2514-8) NEG UA - LEUKOCYTE ESTERASE (test code = 5799-2) NEG UA - NITRITE (test code = 5802-4) NEG UA - PH (test code = 5803-2) NEG 4.6-8.0 UA - PROTEIN (test code = 77633-3) NEG UA - REDUCING SUBSTANCE (test code = 09973-4) . UA - SPECIFIC GRAVITY (test code = 2965-2) NEG 1.001 -1.035 UA - URINE SEDIMENT (test code = 98115-1) . URINALYSIS, AUTOMATED, W/O MICRO ([id number])2006-05-25 00:00:00 Test Item Value Reference Range Comments UA - BILIRUBIN (test code = 5770-3) NEG UA - BLOOD (test code = 5794-3) NEG UA - COMMENTS (test code = UA - COMMENTS) NEG UA - LEUKOCYTE ESTERASE (test code = 5799-2) NEG UA - NITRITE (test code = 5802-4) NEG UA - PROTEIN (test code = 22174-4) NEG UA - REDUCING SUBSTANCE (test code = 30698-8) NEG UA - URINE SEDIMENT (test code = 55409-9) NEG UA - APPEARANCE (test code = 5767-9) CLEAR UA - COLOR (test code = 5778-6) YELLOW UA - GLUCOSE (test code = 5792-7) NEG UA - KETONES (test code = 2514-8) NEG UA - PH (test code = 5803-2) NEG 4.6-8.0 UA - SPECIFIC GRAVITY (test code = 2965-2) NEG 1.001 -1.035 Assessments Condition Name Status Diagnosis Date Treating Clinici an COLICKY RLQ ABDOMINAL PAIN Active CALCULUS OF KIDNEY (592.0) Active 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 NOCTURIA Active URGENCY OF URINATION Active STATE, SYMPTOMATIC MENOPAUSE/FEM CLIMACTERIC Active (627.2) NO SHOWED 05/30/18 Active UTI SYMPTOMS Active URGENCY OF URINATION Active SYMPTOMS INVOLVING URINARY SYSTEM, URINARY Active FREQUENCY (788.41) DIARRHEA Active SCREENING FOR MALIGNANT NEOPLASMS OF THE Active RECTUM (V76.41) 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 NOCTURIA Active CALCULUS OF KIDNEY (592.0) Active ELEVATED FASTING BLOOD SUGAR Active COLICKY RLQ ABDOMINAL PAIN Active ROUTINE GYNECOLOGICAL EXAMINATION (V72.31) Active ENCOUNTER FOR SCREENING FOR HUMAN Active PAPILLOMAVIRUS (HPV) (Z11.51) 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 SCREENING FOR MALIGNANT NEOPLASMS OF THE Active RECTUM (V76.41) PROPHYLACTIC HORMONE REPLACEMENT THERAPY Active (V07.4) OTHER SPECIFIED MENOPAUSAL AND Active PERIMENOPAUSAL DISORDERS DEFICIENCY, VITAMIN D NOS (268.9) Active ROUTINE GYNECOLOGICAL EXAMINATION (V72.31) Active SCREENING FOR MALIGNANT NEOPLASMS OF THE Active RECTUM (V76.41) PROPHYLACTIC HORMONE REPLACEMENT THERAPY Active (V07.4) SCREENING MAMMOGRAM NEC (V76.12) Active DEFICIENCY, VITAMIN D NOS (268.9) Active 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) CALCULUS OF KIDNEY (592.0) Active 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 BREAST FIBROCYSTIC DISORDER (610.1) Active OTHER SPECIFIED MENOPAUSAL AND Active PERIMENOPAUSAL DISORDERS neg genetic screen Active ELEVATED FASTING BLOOD SUGAR Active CANDIDAL VULVITIS Active 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 SYMPTOMS INVOLVING URINARY SYSTEM, MIXED Active INCONTINENCE, URGE AND STRESS (MALE) (FEMALE) (788.33) CALCULUS OF KIDNEY (592.0) Active 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) DEFICIENCY, VITAMIN D NOS (268.9) Active ROUTINE GYNECOLOGICAL EXAMINATION (V72.31) Active SCREENING FOR MALIGNANT NEOPLASMS OF THE Active RECTUM (V76.41) SCREENING MAMMOGRAM NEC (V76.12) Active DEFICIENCY, VITAMIN D NOS (268.9) Active PROPHYLACTIC HORMONE REPLACEMENT THERAPY Active (V07.4) BREAST FIBROCYSTIC DISORDER (610.1) Active RECTAL ITCHING (698.0) Active DEFICIENCY, VITAMIN D NOS (268.9) Active 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) DEFICIENCY, VITAMIN D NOS (268.9) Active PROPHYLACTIC HORMONE REPLACEMENT THERAPY Active (V07.4) 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) DEFICIENCY, VITAMIN D NOS (268.9) Active PROPHYLACTIC HORMONE REPLACEMENT THERAPY Active (V07.4) STATE, SYMPTOMATIC MENOPAUSE/FEM CLIMACTERIC Active (627.2) ROUTINE GYNECOLOGICAL EXAMINATION (.31) Active SCREENING FOR HUMAN PAPILLOMAVIRUS (HPV) Active (V73.81) PROPHYLACTIC HORMONE REPLACEMENT THERAPY Active (V07.4) DEFICIENCY, VITAMIN D NOS (268.9) Active 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) DEFICIENCY, VITAMIN D NOS (268.9) Active 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) OTHER AND UNSPECIFIED OVARIAN CYST (620.2) Active DEFICIENCY, VITAMIN D NOS (268.9) Active PHARYNGITIS, ACUTE (462.) Active 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) CALCULUS OF KIDNEY (592.0) Active DEFICIENCY, VITAMIN D NOS (268.9) Active STATE, SYMPTOMATIC MENOPAUSE/FEM CLIMACTERIC Active (627.2) PROPHYLACTIC HORMONE REPLACEMENT THERAPY Active (V07.4) PHARYNGITIS, ACUTE (462.) Active URI= cold November Active DEFICIENCY, VITAMIN D NOS (268.9) Active DEFICIENCY, VITAMIN D NOS (268.9) Active 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) STATE, SYMPTOMATIC MENOPAUSE/FEM CLIMACTERIC Active (627.2) DEFICIENCY, VITAMIN D NOS (268.9) Active 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) DEFICIENCY, VITAMIN D NOS (268.9) Active 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) DEFICIENCY, VITAMIN D NOS (268.9) Active ROUTINE GYNECOLOGICAL EXAMINATION (V7.31) Active PROPHYLACTIC HORMONE REPLACEMENT THERAPY Active (V07.4) STATE, SYMPTOMATIC MENOPAUSE/FEM CLIMACTERIC Active (627.2) 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) DYSPLASIA OF CERVIX, 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 CALCULUS OF KIDNEY (592.0) Active 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 Active BLEEDING, POSTMENOPAUSAL (627.1) Active PROPHYLACTIC HORMONE REPLACEMENT THERAPY Active (V07.4) STATE, SYMPTOMATIC MENOPAUSE/FEM CLIMACTERIC Active (627.2) DYSPLASIA OF CERVIX, 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 BLEEDING, POSTMENOPAUSAL (627.1) Active PROPHYLACTIC HORMONE REPLACEMENT THERAPY Active (V07.4) BLEEDING, POSTMENOPAUSAL (627.1) Active OTHER SYMPTOMS INVOLVING ABDOMEN AND PELVIS, Active ABDOMINAL PAIN, RIGHT LOWER QUADRANT (789.03) STATE, SYMPTOMATIC MENOPAUSE/FEM CLIMACTERIC Active (627.2) SYMPTOM, HEADACHE (784.0) Active SYMPTOM, PAIN, ABDOMINAL, GENERALIZED Active (789.07) OTHER SYMPTOMS INVOLVING ABDOMEN AND PELVIS, Active ABDOMINAL PAIN, RIGHT LOWER QUADRANT (789.03) BLEEDING, POSTMENOPAUSAL (627.1) Active STATE, SYMPTOMATIC MENOPAUSE/FEM CLIMACTERIC Active (627.2) SYMPTOM, HEADACHE (784.0) Active STATE, SYMPTOMATIC MENOPAUSE/FEM CLIMACTERIC Active (627.2) SYMPTOM, HEADACHE (784.0) Active SURVEILLANCE OF CONTRACEPTIVE PILL (V25.41) Active SURVEILLANCE OF CONTRACEPTIVE PILL (V25.41) Active ROUTINE GYNECOLOGICAL EXAMINATION (V72.31) Active SURVEILLANCE OF CONTRACEPTIVE PILL (V25.41) Active 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 CALCULUS OF KIDNEY (592.0) Active 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 DYSPLASIA OF CERVIX, 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 SURVEILLANCE OF CONTRACEPTIVE PILL (V25.41) Active 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) SURVEILLANCE OF CONTRACEPTIVE PILL (V25.41) Active ROUTINE GYNECOLOGICAL EXAMINATION (V72.31) Active 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) Unspecified Diagnosis Active ROUTINE GYNECOLOGICAL EXAMINATION (V72.31) Active ROUTINE GYNECOLOGICAL EXAMINATION (V72.31) Active SURVEILLANCE OF CONTRACEPTIVE PILL (V25.41) Active SYMPTOMS INVOLVING URINARY SYSTEM, MIXED Active INCONTINENCE, URGE AND STRESS (MALE) (FEMALE) (788.33) EXCESSIVE OR FREQUENT MENSTRUATION (626.2) Active CALCULUS OF KIDNEY (592.0) Active 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 Active SYMPTOMS INVOLVING URINARY SYSTEM, MIXED Active INCONTINENCE, URGE AND STRESS (MALE) (FEMALE) (788.33) 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 EXCESSIVE OR FREQUENT MENSTRUATION (626.2) Active OTHER AND UNSPECIFIED OVARIAN CYST (620.2) Active CALCULUS OF KIDNEY (592.0) Active DYSPLASIA OF CERVIX, 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.4) Active SYMPTOMS INVOLVING URINARY SYSTEM, MIXED Active INCONTINENCE, URGE AND STRESS (MALE) (FEMALE) (788.33) ROUTINE GYNECOLOGICAL EXAMINATION (V72.31) Active ROUTINE GYNECOLOGICAL EXAMINATION (V72.31) Active OTHER AND UNSPECIFIED OVARIAN CYST (620.2) Active EXCESSIVE OR FREQUENT MENSTRUATION (626.2) Active 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 HUMAN 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, 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 SYMPTOMS INVOLVING URINARY SYSTEM, MIXED Active INCONTINENCE, URGE AND STRESS (MALE) (FEMALE) (788.33) CALCULUS OF KIDNEY (592.0) Active OTHER AND UNSPECIFIED OVARIAN CYST (620.2) Active SURVEILLANCE OF CONTRACEPTIVE PILL (V25.41) Active OTHER AND UNSPECIFIED OVARIAN CYST (620.2) Active SURVEILLANCE OF CONTRACEPTIVE PILL (V25.41) Active DYSPLASIA OF CERVIX, 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 OTHER AND UNSPECIFIED OVARIAN CYST (620.2) Active DYSPLASIA OF CERVIX, 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 SURVEILLANCE OF CONTRACEPTIVE PILL (V25.41) Active EXCESSIVE OR FREQUENT MENSTRUATION (626.2) Active DYSPLASIA OF CERVIX, 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 OTHER AND UNSPECIFIED OVARIAN CYST (620.2) Active POLYP OF CORPUS UTERI (621.0) Active SEBACEOUS CYST (706.2) Active SYMPTOMS INVOLVING URINARY SYSTEM, URINARY Active FREQUENCY (788.41) POLYP OF CORPUS UTERI (621.0) Active SEBACEOUS CYST (706.2) Active 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 EXCESSIVE OR FREQUENT MENSTRUATION (626.2) Active DYSPLASIA OF CERVIX, 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.4) Active OTHER AND UNSPECIFIED OVARIAN CYST (620.2) Active POLYP OF CORPUS UTERI (621.0) Active EXCESSIVE OR FREQUENT MENSTRUATION (626.2) Active SEBACEOUS CYST (706.2) Active POLYP OF CORPUS UTERI (621.0) Active DYSPLASIA OF CERVIX, 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 OTHER SYMPTOMS INVOLVING ABDOMEN AND PELVIS, Active ABDOMINAL PAIN, RIGHT LOWER QUADRANT (789.03) EXCESSIVE OR FREQUENT MENSTRUATION (626.2) Active SEBACEOUS CYST (706.2) Active DYSPLASIA OF CERVIX, 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, 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, 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.4) Active OTHER SYMPTOMS INVOLVING ABDOMEN AND PELVIS, Active ABDOMINAL PAIN, RIGHT LOWER QUADRANT (789.03) SEBACEOUS CYST (706.2) Active Encounters Start End Encounter Admission Attending Care Care Encounter ID Date/Time Date/Time Type Type Clinicians Facility Department 2018-06-18 2018-06-18 Office Visit [place] [id number] 15:26:41 16:49:27 [facility] Women[facility] Women's 2018-05-31 2018-05-31 Annotation/A [place] [id number] 13:14:17 13:14:17 ddendum [facility] Women's 2018-05-09 2018-05-09 Office Visit [place] [id number] 07:27:51 07:27:51 [facility] Women's 2017-06-26 2017-06-26 Office Visit [place] [id number] 07:42:52 07:42:52 [facility] Women's 2015-04-09 2015-04-09 Office Visit [place] [id number] 15:07:11 15:07:11 [facility] Women's 2015-03-19 2015-03-19 Historical [facility] [id number] 11:30:00 11:30:00 Summary [facility] Women's 2013-10-07 2013-10-07 Office Visit [place] [id number] 09:16:22 09:16:22 [facility] Women's 2013-09-29 2013-09-29 [facility] [id number] 08:39:07 08:39:07 Summary [facility] Women's 2011-11-07 2011-11-07 Office Visit [place] [id number] 08:56:43 08:56:43 [facility] Women's 2011-10-31 2011-10-31 Historical [facility] [id number] 08:15:56 08:15:56 Summary [facility] Women's 2011-07-07 2011-07-07 Annotation/A [place] [id number] 16:05:49 16:05:49 ddendum [facility] Women's 2011-04-20 2011-04-20 Office Visit [place] [id number] 09:23:46 09:23:46 [facility] Women's 2011-04-14 2011-04-14 [facility] [id number] 08:33:36 08:33:36 Summary [facility] Women's 2010-12-01 2010-12-01 Office Visit [place] [id number] 13:29:39 13:29:39 [facility] Women's 2010-11-24 2010-11-24 Office Visit [place] [id number] 13:25:34 13:25:34 [facility] Women's 2010-10-28 2010-10-28 [facility] [id number] 08:36:03 08:36:03 [facility] Women's 2010-09-27 2010-09-27 [facility] [id number] 07:58:33 07:58:33 [facility] Women's 2010-05-06 2010-05-06 Office Visit [place] [id number] 14:19:47 14:19:47 [facility] Women's 2010-04-26 2010-04-26 [facility] [id number] 09:19:46 09:19:46 Summary [facility] Women's 2010-04-15 2010-04-15 Annotation/A [place] [id number] 12:32:12 12:32:12 ddendum [facility] Women's 2010-04-15 2010-04-15 Annotation/A [place] [id number] 12:14:42 12:14:42 ddendum [facility] Women's 2010-04-14 2010-04-14 Office Visit [place] [id number] 14:17:16 14:17:16 [facility] Women's 2010-01-21 2010-01-21 Office Visit [place] [id number] 13:34:56 13:34:56 [facility] Women's 2010-01-14 2010-01-14 Annotation/A [place] [id number] 12:25:01 12:25:01 ddendum [facility] Women's 2009-12-31 2009-12-31 Office Visit [place] [id number] 09:08:01 09:08:01 [facility] Women's 2009-12-13 2009-12-13 Office Visit [place] [id number] 13:02:17 13:02:17 [facility] Women's 2009-09-20 2009-09-20 Office Visit [place] [id number] 14:40:17 14:40:17 [facility] Women's 2009-09-13 2009-09-13 Office Visit [place] [id number] 15:10:50 15:10:50 [facility] Women's 2009-04-05 2009-04-05 [facility] [id number] 13:37:54 13:37:54 [facility] Women's 2009-03-17 2009-03-17 Office Visit [place] [id number] 13:41:03 13:41:03 [facility] Women's 2008-06-29 2008-06-29 Office Visit [place] [id number] 13:47:47 13:47:47 [facility] Women's 2008-04-13 2008-04-13 Phone [facility] [id number] 13:44:25 13:44:25 Encounter [facility] Women's 2007-11-07 2007-11-07 Letter [facility] [id number] 14:45:25 14:45:25 [facility] Women's 2007-10-10 2007-10-10 Office Visit [place] [id number] 14:57:04 14:57:04 [facility] Women's 2007-09-30 2007-09-30 Historical [facility] [id number] 12:16:42 12:16:42 Summary [facility] Women's 2007-09-24 2007-09-24 Letter [facility] [id number] 08:18:25 08:18:25 [facility] Women's 2007-09-17 2007-09-17 Office Visit [place] [id number] 14:10:59 14:10:59 [facility] Women's 2007-01-01 2007-01-01 Office Visit [place] [id number] 10:02:21 10:02:21 [facility] Women's 2006-12-31 2006-12-31 Historical [facility] [id number] 16:46:09 16:46:09 Summary [facility] Women's 2006-08-27 2006-08-27 Office Visit [facility] [id number] 13:24:45 13:24:45 [facility] Women's 2006-06-05 2006-06-05 Letter [facility] [id number] 11:41:27 11:41:27 [facility] Women's 2006-05-25 2006-05-25 Office Visit [facility] [id number] 09:22:08 09:22:08 [facility] Women's 2006-05-24 2006-05-24 Historical [facility] [id number] 10:01:00 10:01:00 Summary [facility] Women's 2006-03-19 2006-03-19 Phone [facility] [id number] 13:44:07 13:44:07 Encounter [facility] Women's 2005-11-23 2005-11-23 Office Visit [place] [id number] 14:27:36 14:27:36 [facility] Women's 2005-11-09 2005-11-09 Phone [facility] [id number] 12:27:25 12:27:25 Encounter [facility] Women's 2005-06-13 2005-06-13 Letter [facility] [id number] 09:28:29 09:28:29 [facility] Women's 2005-05-23 2005-05-23 Office Visit [place] [id number] 14:05:54 14:05:54 [facility] Women's 2005-03-10 2005-03-10 Post-Op [facility] [id number] 14:17:29 14:17:29 Visit [facility] Women[facility] Women's 2005-03-02 2005-03-02 Letter [facility] [id number] 13:00:15 13:00:15 [facility] Women's 2005-02-13 2005-02-13 Office Visit [place] [id number] 10:24:54 10:24:54 [facility] Women's 2005-02-10 2005-02-10 Admission [facility] [id number] 11:36:27 11:36:27 Note [facility] Women's 2005-02-07 2005-02-07 Phone [facility] [id number] 17:18:47 17:18:47 Encounter [facility] Women's 2005-01-25 2005-01-25 Annotation/A [place] [id number] 21:19:20 21:19:20 ddendum [facility] Women's 2005-01-19 2005-01-19 Office Visit [place] [id number] 14:02:49 14:02:49 [facility] Women's 2005-01-16 2005-01-16 Annotation/A [place] [id number] 15:38:34 15:38:34 ddendum [facility] Women[facility] Women's 2005-01-10 2005-01-10 Consultation [place] [id number] 10:44:35 10:44:35 [facility] Women's Family History Family Member Diagnosis Comments Start Date Stop Date Unspecified Breast Cancer Cousin. Unspecified Cancer Mother. Unspecified DIABETES MELLITUS, NOS Mother. Son. Sister. Unspecified HEART DISEASE, NOS Father. Unspecified HYPERTENSION Father. Unspecified HYPOTHYROIDISM, NOS Mother. Unspecified Stomach Cancer Maternal Grandmother. Unspecified STROKE, NOS ([phone] Father. Payers Payer Name Policy Type Policy Number Effective Date Expiration D ate [employer] Federal Employee OT Benefit Plan FEP STANDARD OPTION OT FORMULARY Plan of Treatment Planned Activity Planned Date Details Comments Future Scheduled Test [code = ] Future Scheduled Test [code = ] Future Scheduled Test [code = ] Future Scheduled Test [code = ] Future Scheduled Test [code = ] Future Scheduled Test [code = ] Future Scheduled Test [code = ] Future Scheduled Test [code = ] Future Scheduled Test [code = ] Future Scheduled Test [code = ] Future Scheduled Test [code = ] Future Scheduled Test [code = ] Future Scheduled Test [code = ] Future Scheduled Test [code = ] Future Scheduled Test [code = ] Future Scheduled Test [code = ] Future Scheduled Test [code = ] Future Scheduled Test [code = ] Future Scheduled Test [code = ] Future Scheduled Test [code = ] Future Scheduled Test [code = ] Future Scheduled Test [code = ] Future Scheduled Test [code = ] Future Scheduled Test [code = ] Future Scheduled Test [code = ] Future Scheduled Test [code = ] Future Scheduled Test [code = ] Future Scheduled Test [code = ] Social History Social Habit Start Date Stop Date Comments Tobacco Use No Drug Use Non Drinker/No Alcohol Use Primary Control Method Smoking Status Start Date Stop Date Never smoker Vital Signs Vital Name Observation Time Observation Value Comments BP Systolic 2018-06-18 15:29:25 142 mm[Hg] Patient Posi tion: Sitting; Cuff Location: Left A rm; Cuff Size: Stand ronak BP Diastolic 2018-06-18 15:29:25 80 mm[Hg] Patient Posi tion: Sitting; Cuff Location: Left A rm; Cuff Size: Stand ronak Weight 2018-06-18 15:29:25 126.25 [lb_av] Height 2018-06-18 15:29:25 58 [in_us] Body Mass Index Calculated 2018-06-18 15:29:25 26.39 kg/m2 BP Systolic 2018-05-09 08:54:22 138 mm[Hg] Patient Posi tion: Sitting; Cuff Location: Left A rm; Cuff Size: Stand ronak BP Diastolic 2018-05-09 08:54:22 78 mm[Hg] Patient Posi tion: Sitting; Cuff Location: Left A rm; Cuff Size: Stand ronak Weight 2018-05-09 08:54:22 127.25 [lb_av] Height 2018-05-09 08:54:22 58 [in_us] Body Mass Index Calculated 2018-05-09 08:54:22 26.59 kg/m2 BP Systolic 2017-06-26 09:14:39 118 mm[Hg] Patient Posi tion: Sitting; Cuff Location: Left A rm; Cuff Size: Stand ronak BP Diastolic 2017-06-26 09:14:39 78 mm[Hg] Patient Posi tion: Sitting; Cuff Location: Left A rm; Cuff Size: Stand ronak Weight 2017-06-26 09:14:39 118.125 [lb_av] Height 2017-06-26 09:14:39 58 [in_us] Body Mass Index Calculated 2017-06-26 09:14:39 24.69 kg/m2 BP Systolic 2015-04-09 15:08:17 142 mm[Hg] Patient Posi tion: Sitting; Cuff Location: Left A rm; Cuff Size: Stand ronak BP Diastolic 2015-04-09 15:08:17 80 mm[Hg] Patient Posi tion: Sitting; Cuff Location: Left A rm; Cuff Size: Stand ronak Weight 2015-04-09 15:08:17 135.25 [lb_av] Height 2015-04-09 15:08:17 58 [in_us] Body Mass Index Calculated 2015-04-09 15:08:17 28.27 kg/m2 BP Systolic 2013-10-07 09:20:06 138 mm[Hg] BP Diastolic 2013-10-07 09:20:06 72 mm[Hg] Weight 2013-10-07 09:20:06 135 [lb_av] Height 2013-10-07 09:20:06 60 [in_us] Body Mass Index Calculated 2013-10-07 09:20:06 26.37 kg/m2 BP Systolic 2011-11-07 08:57:42 120 mm[Hg] Patient Posi tion: Sitting BP Diastolic 2011-11-07 08:57:42 82 mm[Hg] Patient Posi tion: Sitting Weight 2011-11-07 08:57:42 131 [lb_av] Height 2011-11-07 08:57:42 60 [in_us] Body Mass Index Calculated 2011-11-07 08:57:42 25.58 kg/m2 Temperature 2011-04-20 09:24:12 97.8 [degF] Method: Oral BP Systolic 2011-04-20 09:24:12 132 mm[Hg] Patient Posi tion: Sitting; Cuff Location: Left A rm; Cuff Size: Stand ronak BP Diastolic 2011-04-20 09:24:12 76 mm[Hg] Patient Posi tion: Sitting; Cuff Location: Left A rm; Cuff Size: Stand ronak Weight 2011-04-20 09:24:12 134 [lb_av] Height 2011-04-20 09:24:12 60 [in_us] Body Mass Index Calculated 2011-04-20 09:24:12 26.17 kg/m2 BP Systolic 2010-11-24 13:26:31 126 mm[Hg] Patient Posi tion: Sitting; Cuff Location: Left A rm; Cuff Size: Stand ronak BP Diastolic 2010-11-24 13:26:31 78 mm[Hg] Patient Posi tion: Sitting; Cuff Location: Left A rm; Cuff Size: Stand ronak Weight 2010-11-24 13:26:31 135 [lb_av] Height 2010-11-24 13:26:31 60 [in_us] Body Mass Index Calculated 2010-11-24 13:26:31 26.37 kg/m2 BP Systolic 2010-05-06 14:22:10 138 mm[Hg] Patient Posi tion: Sitting; Cuff Location: Left A rm; Cuff Size: Stand ronak BP Diastolic 2010-05-06 14:22:10 78 mm[Hg] Patient Posi tion: Sitting; Cuff Location: Left A rm; Cuff Size: Stand ronak BP Systolic 2010-04-14 14:17:32 120 mm[Hg] BP Diastolic 2010-04-14 14:17:32 70 mm[Hg] Weight 2010-04-14 14:17:32 138 [lb_av] Height 2010-04-14 14:17:32 60 [in_us] Body Mass Index Calculated 2010-04-14 14:17:32 26.95 kg/m2 BP Systolic 2009-12-13 15:49:16 110 mm[Hg] Patient Posi tion: Sitting BP Diastolic 2009-12-13 15:49:16 70 mm[Hg] Patient Posi tion: Sitting Weight 2009-12-13 15:49:16 136 [lb_av] Height 2009-12-13 15:49:16 60 [in_us] Body Mass Index Calculated 2009-12-13 15:49:16 26.56 kg/m2 BP Systolic 2009-09-13 15:45:23 128 mm[Hg] Patient Posi tion: Sitting BP Diastolic 2009-09-13 15:45:23 82 mm[Hg] Patient Posi tion: Sitting Weight 2009-09-13 15:45:23 131 [lb_av] Height 2009-09-13 15:45:23 60 [in_us] Body Mass Index Calculated 2009-09-13 15:45:23 25.58 kg/m2 Temperature 2009-03-17 13:48:23 99.5 [degF] Method: Oral BP Systolic 2009-03-17 13:48:23 100 mm[Hg] Patient Posi tion: Sitting BP Diastolic 2009-03-17 13:48:23 62 mm[Hg] Patient Posi tion: Sitting Weight 2009-03-17 13:48:23 129 [lb_av] Height 2009-03-17 13:48:23 60 [in_us] Body Mass Index Calculated 2009-03-17 13:48:23 25.19 kg/m2 BP Systolic 2008-06-29 13:49:00 118 mm[Hg] Patient Posi tion: Undefined; Cuff Location: Undefi christophe; Cuff Size: Undef ined BP Diastolic 2008-06-29 13:49:00 72 mm[Hg] Patient Posi tion: Undefined; Cuff Location: Undefi christophe; Cuff Size: Undef ined Weight 2008-06-29 13:49:00 132 [lb_av] Height 2008-06-29 13:49:00 60 [in_us] Body Mass Index Calculated 2008-06-29 13:49:00 25.78 kg/m2 Head Circumference 2008-06-29 13:49:00 0.00 cm BP Systolic 2007-10-10 15:00:00 120 mm[Hg] Patient Posi tion: Undefined; Cuff Location: Undefi christophe; Cuff Size: Undef ined BP Diastolic 2007-10-10 15:00:00 74 mm[Hg] Patient Posi tion: Undefined; Cuff Location: Undefi christophe; Cuff Size: Undef ined Weight 2007-10-10 15:00:00 130 [lb_av] Height 2007-10-10 15:00:00 60 [in_us] Body Mass Index Calculated 2007-10-10 15:00:00 25.39 kg/m2 Head Circumference 2007-10-10 15:00:00 0.00 cm Temperature 2007-09-17 14:11:00 97.6 [degF] Method: Unde fined BP Systolic 2007-09-17 14:11:00 120 mm[Hg] Patient Posi tion: Undefined; Cuff Location: Undefi christophe; Cuff Size: Undef ined BP Diastolic 2007-09-17 14:11:00 70 mm[Hg] Patient Posi tion: Undefined; Cuff Location: Undefi christophe; Cuff Size: Undef ined Weight 2007-09-17 14:11:00 130 [lb_av] Height 2007-09-17 14:11:00 60 [in_us] Body Mass Index Calculated 2007-09-17 14:11:00 25.39 kg/m2 Head Circumference 2007-09-17 14:11:00 0.00 cm BP Systolic 2006-05-25 09:22:00 118 mm[Hg] Patient Posi tion: Undefined; Cuff Location: Undefi christophe; Cuff Size: Undef ined BP Diastolic 2006-05-25 09:22:00 70 mm[Hg] Patient Posi tion: Undefined; Cuff Location: Undefi christophe; Cuff Size: Undef ined Weight 2006-05-25 09:22:00 132 [lb_av] Height 2006-05-25 09:22:00 60 [in_us] Body Mass Index Calculated 2006-05-25 09:22:00 25.78 kg/m2 Head Circumference 2006-05-25 09:22:00 0.00 cm BP Systolic 2005-03-10 14:18:00 118 mm[Hg] Patient Posi tion: Undefined; Cuff Location: Undefi christophe; Cuff Size: Undef ined BP Diastolic 2005-03-10 14:18:00 78 mm[Hg] Patient Posi tion: Undefined; Cuff Location: Undefi christophe; Cuff Size: Undef ined Weight 2005-03-10 14:18:00 0 [lb_av] Height 2005-03-10 14:18:00 0 [in_us] Head Circumference 2005-03-10 14:18:00 0.00 cm Temperature 2005-02-13 10:25:00 96.9 [degF] Method: Unde fined BP Systolic 2005-02-13 10:25:00 120 mm[Hg] Patient Posi tion: Undefined; Cuff Location: Undefi christophe; Cuff Size: Undef ined BP Diastolic 2005-02-13 10:25:00 78 mm[Hg] Patient Posi tion: Undefined; Cuff Location: Undefi christophe; Cuff Size: Undef ined Weight 2005-02-13 10:25:00 131 [lb_av] Height 2005-02-13 10:25:00 60 [in_us] Body Mass Index Calculated 2005-02-13 10:25:00 25.58 kg/m2 Head Circumference 2005-02-13 10:25:00 0.00 cm Temperature 2005-01-10 11:00:00 97 [degF] Method: Unde fined BP Systolic 2005-01-10 11:00:00 120 mm[Hg] Patient Posi tion: Undefined; Cuff Location: Undefi christophe; Cuff Size: Undef ined BP Diastolic 2005-01-10 11:00:00 80 mm[Hg] Patient Posi tion: Undefined; Cuff Location: Undefi christophe; Cuff Size: Undef ined Weight 2005-01-10 11:00:00 131 [lb_av] Height 2005-01-10 11:00:00 60 [in_us] Body Mass Index Calculated 2005-01-10 11:00:00 25.58 kg/m2 Head Circumference 2005-01-10 11:00:00 0.00 cm Hospital Discharge Instructions No Instruction Information AvailableNo Instruction Information AvailableNo Instruction Information Available
== END ==
LOC: EMPHEALTH 16:56
PROVIDERS: ATTEND Internal Medicine
DX: Z23 Encounter for immunization (principal)
CPT/HCPCS: 91300